=== PATIENT | female | born 2000 | race Hispanic/Latino ===

== ENCOUNTER 2018-03-14 06:16 | Day surgery (SDC) | payer OTHER, SELFPAY ==
[2018-03-14] MEDS ORDERED: LACTATED RINGERS 1,000 ML IV SCH (06:20)
[2018-03-14] MEDS ORDERED: MARCAINE 0.25% INFILTRATI ONE ×2 (07:32→08:30)
[2018-03-14] MEDS ORDERED: ANCEF/STERILE WATER 2 GM/20 ML IV NR (07:49)
--- NOTE | 2018-03-14 07:50 | Short Stay Summary ---
Short Stay Documentation Date of service: 03/14/18 Narrative H&P: Patient is a 17 year old female with a 6cm persistent ovarian cyst that has been causing pain since 12/2017. Patient presents today for removal of same. - History H&P: obtained from office Past Medical History: No medical history Past Surgical History: No surgical history Social history: single - Allergies and Medications Current Medications: Allergies Sulfa (Sulfonamide Antibiotics) Allergy (Verified 03/07/18 16:49) Rash Home Medications Medication Instructions Recorded Confirmed Last Taken Type Norgestimate-Ethinyl Estradiol 1 tab PO DAILY 03/07/18 03/07/18 Unknown History [Sprintec 28 Day Tablet] Active Medications Celecoxib (Celebrex) 200 mg PO PREOP NR Stop: 03/14/18 21:00 Gabapentin (Neurontin) 300 mg PO PREOP NR Stop: 03/14/18 21:00 Lactated Ringer's (Lactated Ringers) 1,000 mls @ 75 mls/hr IV DIRECT TAMY Midazolam HCl (Versed) 2 mg IV PREOP NR Stop: 03/14/18 21:00 - Physical exam General appearance: no acute distress HEENT: Atraumatic Lungs: Clear to auscultation, Normal air movement Breasts: deferred Heart: Regular rate, Normal S1, Normal S2 Gastrointestinal: normal, normoactive bowel sounds Female Genitourinary: normal Rectal Exam: deferred Extremities: no ischemia, No edema - Brief post op/procedure progress note Date of procedure: 03/14/18 Pre-op diagnosis: Ovarian cyst Post-op diagnosis: other (Large paratubal cyst) Procedure: Laparoscopic removal of paratubal cyst Anesthesia: GETA Findings: 6cm cyst that appeared to be encased in the broad ligament on the left and was adjacent to but not attached to the left ovary. Surgeon: ALEJANDRO CARRANZA Estimated blood loss: 50-100ml Pathology: list (ovarian cyst and cyst fluid) Specimen disposition: to lab Condition: stable - Hospital course Hospital course: unremarkable - Disposition Condition at discharge: Good Disposition: [id number] TO HOME OR SELFCARE Short Stay Discharge Plan Activity: advance as tolerated Weight Bearing Status: Weight Bear as Tolerated Diet: regular Wound: keep clean and dry Follow up with: ALEJANDRO CARRANZA MD [Staff Physician] - 14 Days Prescriptions: HYDROcodone/ACETAMINOPHEN [[place] 5-325 Tablet] 2 each PO Q6H #40 tablet Ibuprofen [Motrin] 800 mg PO Q8HR PRN #40 tablet PRN Reason: Pain, Mild (1-3)
[2018-03-14] MEDS ORDERED: NEURONTIN PO NR (08:00)
[2018-03-14] MEDS ORDERED: VERSED IV NR (08:00)
[2018-03-14] MEDS ORDERED: DIPRIVAN 10 MG/ML IV ONE (08:01)
[2018-03-14] MEDS ORDERED: SUBLIMAZE ONE (08:01)
[2018-03-14] MEDS ORDERED: XYLOCAINE MPF 2% ONE (08:12)
[2018-03-14] MEDS ORDERED: TORADOL ONE (08:12)
[2018-03-14] MEDS ORDERED: DECADRON ONE (08:12)
[2018-03-14] MEDS ORDERED: ZOFRAN ONE (08:12)
--- NOTE | 2018-03-14 08:27 | Anesthesia Consultation ---
Anesthesia Consult and Med Hx Date of service: 03/14/18 - Airway Anesthetic Teeth Evaluation: Good ROM Head & Neck: Adequate Mental/Hyoid Distance: Adequate Mallampati Class: Class II Intubation Access Assessment: Probably Good - Pulmonary Exam CTA: Yes - Cardiac Exam Cardiac Exam: RRR - Pre-Operative Health Status ASA Pre-Surgery Classification: ASA1 Proposed Anesthetic Plan: General - Pulmonary Hx Smoking: No Hx Asthma: No Hx Respiratory Symptoms: No (no recent cough or flu symptoms) Hx Sleep Apnea: No - Cardiovascular System Hx Hypertension: No Hx Heart Attack/AMI: No Hx Cardia Arrhythmia: No - Central Nervous System Hx Seizures: No CVA: No Hx Psychiatric Problems: Yes - Gastrointestinal Hx Gastroesophageal Reflux Disease: No - Endocrine Hx Renal Disease: No Hx Liver Disease: No Hx Insulin Dependent Diabetes: No Hx Non-Insulin Dependent Diabetes: No Hx Thyroid Disease: No - Other Systems Hx Alcohol Use: Yes (Occas) Hx Obesity: No - Additional Comments Anesthesia Medical History Comments: No hx anesthetic complications.
[2018-03-14] MEDS ORDERED: DILAUDID IV PRN (08:29)
[2018-03-14] MEDS ORDERED: DEMEROL IV PRN (08:29)
--- NOTE | 2018-03-14 08:29 | Anesthesia Day of Surgery ---
Anesthesia Day of Surgery - Day of Surgery Patient Examined: Yes Patient H&P Reviewed: Yes Patient is NPO: Yes
[2018-03-14] MEDS ORDERED: NACL 0.9% IR ONE (08:30)
[2018-03-14] MEDS ORDERED: BLOXIVERZ ONE (09:28)
[2018-03-14] MEDS ORDERED: ZEMURON IV ONE (09:28)
[2018-03-14] MEDS ORDERED: ROBINUL ONE (09:28)
--- NOTE | 2018-03-14 10:23 | Operative Report ---
Operative Report Operative Report: Preoperative diagnosis: Left ovarian cyst Postoperative diagnosis: Left paratubal cyst Procedure: Removal of left paratubal cyst Surgeon: Nimco Mccord Anesthesia: General EBL: Minimal IV fluids: 1000 Urine output: 300 Findings: Normal uterus tubes and ovaries with a 6 cm paratubal cysts encased in the broad ligament of the left adnexa Specimens: Cyst and cyst wall Complications: None The patient was properly identified as herself. She was then taken to the OR with IV running and in place. She was given general anesthesia without difficulty. She was placed in a dorsal lithotomy position. She was then prepped and draped in normal sterile fashion. Attention was turned to the patient's vagina. A Becerril catheter was placed. The speculum was then placed the patient's vagina. The cervix was visualized and grasped with tenaculum. The acorn cannula was then inserted. The surgeon's gloves were changed and attention turned to the patient's abdomen. A small incision was made in the patient's umbilicus incision a 5 mm trocar was placed. The laparoscope confirmed intra-abdominal placement. The abdomen was insufflated with CO2 gas to approximately 25 mmHg. Under direct visualization a second trocar was placed through an incision in the left lower quadrant. The patient was placed in Trendelenburg and the uterus tubes and ovaries were identified. Of note there was a large cyst that appeared to be just inferior to the fallopian tube on the left side. Upon further inspection it appeared that the tube was not contiguous with the ovary but rather adjacent to it. It did not appear to involve the fallopian tube on the left either. A third incision was made in the suprapubic region, through this incision a 5 mL trocar was placed. The tube on the left was grasped upward and the cyst was exposed. The broad ligament overlying the cyst was incised and the filmy tissue of the broad ligament was peeled away from the cyst until it was completely freed. Once the cyst was completely free and Endopouch was placed into the incision through the left lower quadrant and the cyst was lifted up into the pouch and delivered out through the left lower quadrant incision. In the process of delivering of the cyst did rupture james and some cyst fluid was removed and that fluid will be sent to pathology for evaluation. A Ray-Naresh was placed in through the left lower quadrant incision to dab a small amount of blood that was noticed in the posterior cul-de-sac. The Ray-Naresh was then removed. There was excellent hemostasis at the end of this portion of the procedure. This cyst was handed off for pathology. At this point the abdomen was deflated. All instruments were then removed from the abdomen. The incisions were then closed with 4-0 Monocryl. The incisions were also injected with quarter percent Marcaine. The patient tolerated the procedure well she was then awakened and taken recovery in stable condition. Sponge needle and instrument counts were correct 2.
[2018-03-14 10:24] VITALS: BP 120/80
--- NOTE | 2018-03-14 13:29 | Post Anesthesia Evaluation ---
- Post Anesthesia Evaluation Patient Participated: Yes Airway Patent: Yes Stable Respiratory Function: Yes Nausea/Vomiting: No Temp > 96.8F: Yes Pain Manageable: Yes Adequeate Hydration: Yes Anesthesia Complications: No
== END 2018-03-14 10:53 | disposition home or self-care (01) ==
LOC: OR 06:16
PROVIDERS: ATTEND Obstetrics & Gynecology
DX: N83.202 Unspecified ovarian cyst, left side (principal); N83.8 Other noninflammatory disorders of ovary, fallopian tube and broad ligament; F41.9 Anxiety disorder, unspecified; Z72.89 Other problems related to lifestyle; Z98.890 Other specified postprocedural states; Z79.899 Other long term (current) drug therapy; Z88.2 Allergy status to sulfonamides
CPT/HCPCS: 58662; 81025; 88304; J0690; J1100; J1885; J2250; J2405; J2704; J2710; J3010; J7120; 88305